=== PATIENT | male | born 1950 | race Caucasian/White ===

== ENCOUNTER 2019-01-06 08:40 | Outpatient (CLI) | payer MEDICARE ==
[~2019-01-06 08:40] MED LIST: Iopamidol 370 76% 100 ML VIAL ONE
--- NOTE | 2019-01-06 09:35 | RAD ---
XR Chest Pa Lat STANDARD HISTORY: Prostate cancer COMPARISON: 11/26/2013 FINDINGS: The heart size is normal. The lungs are well expanded without focal areas of consolidation, pneumothorax or pleural effusions. There are degenerative changes in the spine. IMPRESSION: No radiographic evidence of acute cardiopulmonary process.
--- NOTE | 2019-01-06 10:30 | CT ---
CT ABDOMEN AND PELVIS WITH AND WITHOUT IV CONTRAST: HISTORY: Recently diagnosed prostate cancer. Elevated PSA. FINDINGS: The lung bases are unremarkable. There are couple of cysts in the left lobe of the liver measuring up to 2 cm. A tiny low-density lesion in the anterior aspect of the right lobe of the liver is too small to characterize but likely cyst. The spleen, pancreas and adrenal glands are normal. The patien t is post cholecystectomy and appendectomy. No free air, free fluid or lymphadenopathy is seen in the abdomen or pelvis. No calculi are seen in the kidneys, ureters or the urinary bladder. No hydroureteronephrosis is noted on either side. There is a 2.5 cm exophytic cyst arising from the medial cortex of the right inferior kidney. There is normal contrast excretion into the pelvic calyceal systems, ureters and the urinary bladder. There is mild enlargement of the prostate gland. There is no evidence of aneurysmal dilatation of the abdominal aorta. There are degenerative changes in the spine. No osteolytic or osteoblastic lesions are seen. Fat-containing small bilateral inguinal hernias are present. IMPRESSION: 1. No evidence of metastatic disease. 2. Hepatic cysts. 3. Right renal cyst. 4. Prostatic enlargement.
--- NOTE | 2019-01-06 13:32 | NM ---
WHOLE BODY BONE SCAN: HISTORY: Recently diagnosed prostate cancer. Elevated PSA. RADIOPHARMACEUTICAL: 31.4 mCi technetium 99m-MDP injected intravenously COMPARISON: None CORRELATION: CT abdomen and pelvis from same date FINDINGS: Increased uptake in the shoulders, elbows, wrists, knees, ankles and feet consistent with degenerativ e changes. No other abnormal areas of tracer localization is seen in the skeleton to suggest metastatic disease. Tracer excretion through the kidneys is within normal limits. IMPRESSION: No scintigraphic evidence of osseous metastatic disease.
== END 2019-01-06 08:41 | disposition home or self-care (01) ==
LOC: CT 08:40
PROVIDERS: ATTEND Urology
DX: C61 Malignant neoplasm of prostate (principal); K76.89 Other specified diseases of liver; N28.1 Cyst of kidney, acquired; N40.0 Benign prostatic hyperplasia without lower urinary tract symptoms
CPT/HCPCS: 71046; 74178; 78306; A9503; 82565; Q9967

== ENCOUNTER 2024-02-06 08:32 | Outpatient (CLI) | payer OTHER | END 2024-02-06 08:33 | disposition home or self-care (01) | LOC: SCSMRI 08:32 | PROVIDERS: ATTEND Psychiatry & Neurology Sleep Medicine | DX: R41.3 Other amnesia (principal); I67.89 Other cerebrovascular disease | CPT/HCPCS: 70551 ==

== ENCOUNTER 2025-08-24 12:30 | Outpatient (CLI) | payer OTHER | END 2025-08-24 12:31 | disposition home or self-care (01) | LOC: PET 12:30 | PROVIDERS: ATTEND Radiology Radiation Oncology | DX: C61 Malignant neoplasm of prostate (principal) | CPT/HCPCS: 78815; A9595 ==